=== PATIENT | male | born 1955 | race Caucasian/White ===

== ENCOUNTER 2017-04-01 17:44 | Emergency (ER) | payer BC ==
[~2017-04-01] VITALS: Ht 193 cm; Wt 164.0 kg
[2017-04-01 18:02] VITALS: BP 141/84
[2017-04-01] MEDS ORDERED: CefTRIAXone 250MG IM Kit w/LIDOcaine IM ONE (19:35)
[2017-04-01] MEDS ORDERED: TETanus/Pertussis (Acell)/Diphther VAC/PF (Tdap-Adult) 0.5ml syringe IMVAC ONE (19:35)
[2017-04-01] MEDS ORDERED: BUPIVAcaine/PF 2.5 mg/ml (0.25%) 30ml vial IJ ONE (19:40)
[2017-04-01] MEDS ORDERED: CefTRIAXone 1000mg IM Kit (w/lidocaine diluent) IM ONE ×2 (19:55)
[2017-04-01] MEDS ORDERED: CEPH-572 PO (20:57)
[2017-04-01] MEDS ORDERED: HYDR-3965 PO (20:58)
== END 2017-04-01 21:07 | disposition home or self-care (01) ==
LOC: ER 17:47
DX: S62.631B Displaced fracture of distal phalanx of left index finger, initial encounter for open fracture (principal); S61.211A Laceration without foreign body of left index finger without damage to nail, initial encounter; W31.89XA Contact with other specified machinery, initial encounter; Y93.89 Activity, other specified; Y92.89 Other specified places as the place of occurrence of the external cause; Y99.8 Other external cause status
CPT/HCPCS: 12001; 73140; 90471; 90715; 96372; 99284; A6222; A6255; A6449; J0696; J3490

== ENCOUNTER 2024-01-13 12:02 | Emergency (ER) | payer MEDICARE, BC ==
[~2024-01-13] VITALS: Ht 190.5 cm; Wt 159.1 kg
[2024-01-13 12:05] VITALS: BP 155/80; PULSE 74; TEMP 97.8; O2SAT 98
[2024-01-13 13:02] VITALS: RESP 16
[2024-01-13] MEDS: ketorolac trometh 15mg/ml vial 15 MG/ML ML IM ONE (13:02)
== END 2024-01-13 13:32 | disposition home or self-care (01) ==
LOC: ER 12:03
DX: M77.32 Calcaneal spur, left foot (principal); M72.2 Plantar fascial fibromatosis
CPT/HCPCS: 73650; 96372; 99283; J1885

== ENCOUNTER 2024-01-31 15:38 | Outpatient (CLI) | payer MEDICARE, BC ==
[2024-01-29 16:30] LABS: ALBUMIN 3.6 G/DL (3.4-5.0); ANION GAP 9 (8-16); BLOOD UREA NITROGEN 24 MG/DL (7-18); BUN/CREATININE RATIO 16.8 (10.0-20.0); CALCIUM 9.4 MG/DL (8.5-10.1); CHLORIDE 102 MMOL/L (99-107); CREATININE 1.43 MG/DL (0.60-1.10); GLUCOSE 104 MG/DL (70-104); POTASSIUM 4.3 MMOL/L (3.5-5.1); SODIUM 136 MMOL/L (135-145); TOTAL CARBON DIOXIDE 25.4 MMOL/L (24-32); eGFR 49 ML/MIN
[~2024-01-31 15:38] MED LIST: iohexol 350MG/ML 100ml bottle IV ONE
== END 2024-01-31 23:59 | disposition home or self-care (01) ==
LOC: RAD 15:38
PROVIDERS: ATTEND Internal Medicine Interventional Cardiology
DX: I71.21 Aneurysm of the ascending aorta, without rupture (principal); I71.9 Aortic aneurysm of unspecified site, without rupture
CPT/HCPCS: 36415; 71275; 80048; Q9967